=== PATIENT | female | born 1945 | race Caucasian/White ===

== ENCOUNTER 2019-11-13 10:10 | Emergency (ER) | payer MEDICARE ==
[2019-11-13 10:18] VITALS: BP 152/71; PULSE 61; RESP 16; TEMP 98.5
--- NOTE | 2019-11-13 10:39 | ED ---
General Adult HPI - General Chief complaint: Back Pain/Injury Stated complaint: Pain down leg Time Seen by Provider: 11/13/19 10:17 Source: patient, RN notes reviewed Mode of arrival: ambulatory Limitations: no limitations - History of Present Illness Initial comments: 74-year-old female with a past medical history of CAD, hyperlipidemia, atrial fibrillation presents to the emergency room for a chief complaint of right leg pain. Patient reports that she has a history of SI joint pain for which she has needed physical therapy in the past. Patient reports she was having some right and left SI joint pain over the past week. States she was applying heat and this was improving her symptoms. However over the past couple days she has started to have a burning gnawing pain on the lateral aspect of her right leg. States it shoots from her hip down to her foot. Her doctor is out of town so she could not see him. Patient denies any bladder or bowel changes, saddle anesthesia, weakness of the lower extremities, or difficulty ambulating. Denies fevers or chills. Patient has no other complaints at this time including shortness of breath, chest pain, abdominal pain, nausea or vomiting, headache, or visual changes. - Related Data Previous Rx's Medication Instructions Recorded methylPREDNISolone Dose Pack 4 mg PO DIRECTED #21 package 11/13/19 [Medrol Dose Pack] Allergies Allergy/AdvReac Type Severity Reaction Status Date / Time cephalexin [From Keflex] Allergy Unknown Verified 11/13/19 10:20 codeine Allergy Unknown Verified 11/13/19 10:20 danazol [From Danocrine] Allergy Unknown Verified 11/13/19 10:20 erythromycin base Allergy Unknown Verified 11/13/19 10:20 hydromorphone [From Dilaudid] Allergy Unknown Verified 11/13/19 10:20 meperidine [From Demerol] Allergy Unknown Verified 11/13/19 10:20 morphine Allergy Unknown Verified 11/13/19 10:20 nalbuphine [From Nubain] Allergy Unknown Verified 11/13/19 10:20 naproxen [From Naprosyn] Allergy Unknown Verified 11/13/19 10:20 pentazocine [From Talwin] Allergy Unknown Verified 11/13/19 10:20 tramadol Allergy Unknown Verified 11/13/19 10:20 tape Allergy Unknown Uncoded 11/13/19 10:20 Review of Systems ROS Statement: Those systems with pertinent positive or pertinent negative responses have been documented in the HPI. ROS Other: All systems not noted in ROS Statement are negative. Past Medical History Past Medical History: Atrial Fibrillation, Coronary Artery Disease (CAD), Hyperlipidemia History of Any Multi-Drug Resistant Organisms: None Reported Past Surgical History: Adenoidectomy, Appendectomy, Heart Catheterization With Stent, Tonsillectomy Past Psychological History: No Psychological Hx Reported Smoking Status: Never smoker Past Alcohol Use History: None Reported Past Drug Use History: None Reported General Exam Limitations: no limitations General appearance: alert, in no apparent distress Head exam: Present: atraumatic, normocephalic, normal inspection Eye exam: Present: normal appearance, PERRL, EOMI. Absent: scleral icterus, conjunctival injection, periorbital swelling ENT exam: Present: normal exam, mucous membranes moist Neck exam: Present: normal inspection, full ROM. Absent: tenderness, meningismus, lymphadenopathy Respiratory exam: Present: normal lung sounds bilaterally. Absent: respiratory distress, wheezes, rales, rhonchi, stridor Cardiovascular Exam: Present: regular rate, normal rhythm, normal heart sounds. Absent: systolic murmur, diastolic murmur, rubs, gallop, clicks GI/Abdominal exam: Present: soft, normal bowel sounds. Absent: distended, tenderness, guarding, rebound, rigid Extremities exam: Present: full ROM, normal capillary refill (Capillary refill less than 2 seconds in the right lower extremity, dp pulse strong with doppler), other (Positive straight leg raise). Absent: tenderness, pedal edema, joint swelling, calf tenderness (no calf Tenderness no erythema or edema.) Course Vital Signs 11/13/19 10:13 Temperature 98.5 F Pulse Rate 61 Respiratory 16 Rate Blood Pressure 152/71 O2 Sat by Pulse 98 Oximetry Medical Decision Making - Medical Decision Making [facility] physical exam as documented. Patient ambulated to x-ray without difficulty. Symptoms consistent with lumbar radiculopathy. Patient will be treated with Medrol Dosepak which she has tolerated in the past and is requesting. Patient does not want anything for pain whatsoever. Patient will follow up with her doctor at her appointment on . She will return here for any worsening symptoms. Disposition Clinical Impression: Radiculopathy Disposition: HOME SELF-CARE Condition: Good Instructions (If sedation given, give patient instructions): Lumbar Radiculopathy (ED) Additional Instructions: Please take Medrol Dosepak as directed. Follow-up with your doctor on . If you're having any worsening symptoms prior to that return to the emergency room. Prescriptions: methylPREDNISolone Dose Pack [Medrol Dose Pack] 4 mg PO DIRECTED #21 package Is patient prescribed a controlled substance at d/c from ED?: No Referrals: Iker Gracia MD [Primary Care Provider] - 1-2 days Time of Disposition: 11:04
--- NOTE | 2019-11-13 10:58 | XR ---
EXAMINATION TYPE: XR lumbar spine 2 or 3V DATE OF EXAM: 11/13/2019 CLINICAL HISTORY: Pain. Lower thoracic back pain. TECHNIQUE: Frontal and lateral images of the lumbar spine COMPARISON: None FINDINGS: There are 5 lumbar type vertebral bodies identified. The lumbar spine shows satisfactory alignment without evidence of acute fracture or dislocation. Vertebral body heights and disk space he ights are within normal limits. Facet arthropathy. Mild degenerative endplate spurring. No spondyloli sthesis. Decreased osseous mineralization. Calcified atherosclerotic disease of the abdominal aorta. IMPRESSION: 1. No acute fracture or dislocation is seen in the lumbar spine. 2. Facet arthropathy. 3. Decreased osseous mineralization.
== END 2019-11-13 11:15 | disposition home or self-care (01) ==
LOC: EC 10:10
DX: M54.10 Radiculopathy, site unspecified (principal); Z88.1 Allergy status to other antibiotic agents; Z88.5 Allergy status to narcotic agent; Z88.8 Allergy status to other drugs, medicaments and biological substances; Z88.6 Allergy status to analgesic agent; Z91.09 Other allergy status, other than to drugs and biological substances
CPT/HCPCS: 72100; 99283

== ENCOUNTER 2019-11-25 07:44 | Observation (INO) | payer MEDICARE ==
[2019-11-25] MEDS ORDERED: HYDROcodone/APAP 5-325MG 1 EACH TAB PO STA (08:17)
[2019-11-25] MEDS ORDERED: dexAMETHasone 4 MG TAB PO STA (08:18)
--- NOTE | 2019-11-25 08:37 | ED ---
General Adult HPI - General Chief complaint: Back Pain/Injury Stated complaint: Back pain Time Seen by Provider: 11/25/19 07:54 Source: EMS Mode of arrival: EMS Limitations: no limitations - History of Present Illness Initial comments: Dictation was produced using Seer dictation software. please excuse any grammatical, word or spelling errors. This patient was cared for during a federal and state declared state of emergency secondary to Covid 19 Chief Complaint: 74-year-old female recently diagnosed herniated disc presents with back pain. History of Present Illness: Patient 74-year-old female she presents today because she is having worsening back pain. Patient states that she recently saw a labeling specialist. She had an MRI done recently which showed L5-S1 herniated disc in the right lower back. She did see a labeling specialist who gave her prescriptions for gabapentin. She is also given referral to pain specialists an d physical therapy. Patient states that all day yesterday she's been having worsening pain. She did complete a prednisone Dosepak with no significant improvement of symptoms. She presents to the emergency department because she wants a pain specialist evaluation. She denies any fevers. No urinary symptoms. The ROS documented in this emergency department record has been reviewed and confirmed by me. Those systems with pertinent positive or negative responses have been documented in the HPI. All other systems are other negative and/or noncontributory. PHYSICAL EXAM: General Impression: Alert and oriented x3, not in acute distress HEENT: Normocephalic atraumatic, extra-ocular movements intact, pupils equal and reactive to light bilaterally, mucous membranes moist. Cardiovascular: Heart regular rate and rhythm Chest: Able to complete full sentences, no retractions, no tachypnea Abdomen: abdomen soft, non-tender, non-distended, no organomegaly Musculoskeletal: Pulses present and equal in all extremities, no peripheral edema Motor: no focal deficits noted Neurological: CN II-XII grossly intact, no focal motor or sensory deficits noted Skin: Intact with no visualized rashes Psych: Normal affect and mood ED course: 74-year-old female presents with back pain. She had an MRI done within the last week or so showing L5-S1 herniated disc. Patient provides a list of medications that she feels she is either ALLERGIC or significantly sensitive to. On that list includes morphine, codeine and Dilaudid. Patient reports that she feels very nauseated especially with codeine. At this point considering our discussion believe that patient is not truly ALLERGIC to these medications however is probably more sensitive than others. She began taking gabapentin yesterday. Considering that she just started yesterday gabapentin and will likely not take any effect. Discussion was held patient per she is agreeable for trying [place] here in emergency department for some relief. P atient given 10 mg of Decadron. She completed a prednisone pack one week ago. Urinalysis is unremarkable. Urinalysis is unremarkable. Case is discussed with pain specialist Dr. Kothari who is agreeable to consult on patient. He reports that he will unlikely be able to perform any procedures until next week. Discussed patient case with [facility] physician Dr. Tirado was willing to accept patients care. Patient given some Toradol. Patient will be admitted observation. - Related Data Home Medications Medication Instructions Recorded Confirmed Apixaban [Eliquis] 5 mg PO BID 11/25/19 11/25/19 Aspirin EC [Ecotrin Low Dose] 81 mg PO DAILY 11/25/19 11/25/19 Atorvastatin [Lipitor] 10 mg PO W/SUPPER 11/25/19 11/25/19 Breast Health 1 tab PO DAILY 11/25/19 11/25/19 Calcium Carbonate [Tums] 500 mg PO DAILY 11/25/19 11/25/19 Cartilage/Collagen/Bor/Hyalur 1 tab PO DAILY 11/25/19 11/25/19 [Move Free Ultra Tablet] Circulation Support 1 tab PO DAILY 11/25/19 11/25/19 Gabapentin 300 mg PO HS 11/25/19 11/25/19 Lansoprazole [Prevacid] 15 mg PO DAILY 11/25/19 11/25/19 Multivitamins, Thera [Multivitamin 1 tab PO DAILY 11/25/19 11/25/19 (formulary)] [place]-3 Fatty Acids [[place]-3] 3,000 mg PO DAILY 11/25/19 11/25/19 Psyllium Husk [Metamucil] 0.4 gm PO DAILY 11/25/19 11/25/19 Ubidecarenone [Co Q-10] 200 mg PO DAILY 11/25/19 11/25/19 Allergies Allergy/AdvReac Type Severity Reaction Status Date / Time cephalexin [From Keflex] Allergy Unknown Verified 11/25/19 08:47 codeine Allergy Unknown Verified 11/25/19 08:47 danazol [From Danocrine] Allergy Unknown Verified 11/25/19 08:47 erythromycin base Allergy Unknown Verified 11/25/19 08:47 hydromorphone [From Dilaudid] Allergy Unknown Verified 11/25/19 08:47 meperidine [From Demerol] Allergy Unknown Verified 11/25/19 08:47 morphine Allergy Unknown Verified 11/25/19 08:47 nalbuphine [From Nubain] Allergy Unknown Verified 11/25/19 08:47 naproxen [From Naprosyn] Allergy Unknown Verified 11/25/19 08:47 pentazocine [From Talwin] Allergy Unknown Verified 11/25/19 08:47 tramadol Allergy Unknown Verified 11/25/19 08:47 tape Allergy Unknown Uncoded 11/13/19 10:20 Review of Systems ROS Statement: Those systems with pertinent positive or pertinent negative responses have been documented in the HPI. ROS Other: All systems not noted in ROS Statement are negative. Past Medical History Past Medical History: Atrial Fibrillation, Coronary Artery Disease (CAD), Hyperlipidemia History of Any Multi-Drug Resistant Organisms: None Reported Past Surgical History: Adenoidectomy, Appendectomy, Heart Catheterization With Stent, Tonsillectomy Past Psychological History: No Psychological Hx Reported Smoking Status: Never smoker Past Alcohol Use History: None Reported Past Drug Use History: None Reported General Exam Limitations: no limitations Course Vital Signs 11/25/19 11/25/19 11/25/19 07:48 09:15 09:47 Temperature 98.2 F Pulse Rate 61 58 L Respiratory 16 18 16 Rate Blood Pressure 158/72 113/57 O2 Sat by Pulse 97 97 Oximetry Medical Decision Making - Lab Data Lab Results 11/25/19 Range/Units 08:22 Urine Color Light Yellow Urine Appearance Clear (Clear) Urine pH 7.0 (5.0-8.0) Ur Specific [place] 1.009 (1.001-1.035) Urine Protein Negative (Negative) Urine Glucose (UA) Negative (Negative) Urine Ketones Negative (Negative) Urine Blood Negative (Negative) Urine Nitrite Negative (Negative) Urine Bilirubin Negative (Negative) Urine Urobilinogen <2.0 (<2.0) mg/dL Ur Leukocyte Esterase Negative (Negative) Disposition Clinical Impression: Back pain Disposition: ADMITTED IP TO THIS HOSP Condition: Fair Referrals: Rico Pena MD [STAFF PHYSICIAN] - 1-2 days Decision Time: 09:50
[2019-11-25] MEDS ORDERED: APIXABAN 5 MG TAB PO STA (08:45)
[2019-11-25 08:48] LABS: Appearance,Urine Clear (Clear); Bilirubin,Urine Negative (Negative); Blood,Urine Negative (Negative); Color,Urine Light Yellow; Glucose,Urine (UA) Negative (Negative); Ketones,Urine Negative (Negative); Leukocyte Esterase,Urine Negative (Negative); Nitrite,Urine Negative (Negative); Protein,Urine Negative (Negative); Specific Gravity,Urine 1.009 (1.001-1.035); Urobilinogen,Urine <2.0 mg/dL (<2.0)
[2019-11-25] MEDS ORDERED: APIXABAN 5 MG TAB PO SCH (09:00)
[2019-11-25] MEDS ORDERED: ONDANSETRON 4 MG ODT STARTER PACK 2 TAB BTL PO STA (09:09)
[2019-11-25] MEDS ORDERED: NALOXONE 0.4 MG/ML 1 ML VIAL IVP STA (09:24)
[2019-11-25] MEDS ORDERED: KETOROLAC 15 MG/ML 1 ML VIAL IVP STA (09:50)
[2019-11-25] MEDS ORDERED: ONDANSETRON 4 MG/2 ML VIAL IVP STA (10:16)
[2019-11-25] MEDS ORDERED: NALOXONE 0.4 MG/ML 1 ML VIAL IV PRN (11:55)
[2019-11-25] MEDS ORDERED: METOCLOPRAMIDE 5 MG/ML 2 ML VIAL IVP STA (13:35)
--- NOTE | 2019-11-25 13:41 | P.HPIM ---
History of Present Illness H&P Date: 11/25/19 Chief Complaint: Back pain This is a 74-year-old female with past medical history noted below significant for recently diagnosed herniated disc at L4/L5 that usually follow-up with marketing proposal specialist in [place]. Patient presented to the emergency room with worsening back pain. Patient was not very cooperative with my interview. She said that the pain is mostly in her lower back and radiated down to her right leg on the frontal aspect down to the knee. She denies any numbness or tingling. No weakness anywhere. She is having difficulty walking around because of pain. She said that she had an MRI of her lower spine several days ago in [place] showing herniated disc at L4/L5. She was advised by her orthopedic surgeon to take pain medication but patient refuses to take any medications and reported multiple nonspecific ALLERGIES to different pain medications. She was evaluated in the ER and was given 2 [place] and after she was nauseated and vomiting severely and subsequently was given Narcan. She is currently laying comfortably in bed. She denies any back pain at this time. She reports feeling nauseous. She denies any fevers or chills. She is having regular bowel movements otherwise. Her at bedside told me that she is crying in bed every night and unable to get any sleep as she does not take any pain medications. Patient said that she had a Medrol Dosepak last week with minimal relief. She was started on Neurontin 300 mg at bedtime. Review of Systems Review of system: 14 points review of systems were obtained and were negative except to what were mentioned in the HPI. Past Medical History Past Medical History: Atrial Fibrillation, Coronary Artery Disease (CAD), GERD/Reflux, Hyperlipidemia Additional Past Medical History / Comment(s): Chronic back pain for years d/t injury, constipation. History of Any Multi-Drug Resistant Organisms: None Reported Past Surgical History: Adenoidectomy, Appendectomy, Heart Catheterization With Stent, Orthopedic Surgery, Tonsillectomy Additional Past Surgical History / Comment(s): Pilonidal cystectomy, bilateral partial oophorectomies, surgery for R ruptured ectopic , R breast benign biopsy, bilateral carpal tunnel releases, D&C x2, removal benign mass R cheek, bilateral cataract removals Past Anesthesia/Blood Transfusion Reactions: No Reported Reaction Additional Past Anesthesia/Blood Transfusion Reaction / Comment(s): PT has clausterphobia Date of Last Stent Placement:: 2012-[facility] in [place]. Past Psychological History: No Psychological Hx Reported Additional Psychological History / Comment(s): Pt resides with her spouse. She recently has been using a borrowed walker. She normally can drive but not lately d/t back pain. Smoking Status: Never smoker Past Alcohol Use History: Rare Past Drug Use History: None Reported - Past Family History Father Family Medical History: Cancer Additional Family Medical History / Comment(s): Father had lung cancer, he was a smoker. Mother Family Medical History: CVA/TIA Medications and Allergies Home Medications Medication Instructions Recorded Confirmed Type Apixaban [Eliquis] 5 mg PO BID 11/25/19 11/25/19 History Aspirin EC [Ecotrin Low Dose] 81 mg PO DAILY 11/25/19 11/25/19 History Atorvastatin [Lipitor] 10 mg PO W/SUPPER 11/25/19 11/25/19 History Breast Health 1 tab PO DAILY 11/25/19 11/25/19 History Calcium Carbonate [Tums] 500 mg PO DAILY 11/25/19 11/25/19 History Cartilage/Collagen/Bor/Hyalur 1 tab PO DAILY 11/25/19 11/25/19 History [Move Free Ultra Tablet] Circulation Support 1 tab PO DAILY 11/25/19 11/25/19 History Gabapentin 300 mg PO HS 11/25/19 11/25/19 History Lansoprazole [Prevacid] 15 mg PO DAILY 11/25/19 11/25/19 History Multivitamins, Thera [Multivitamin 1 tab PO DAILY 11/25/19 11/25/19 History (formulary)] [place]-3 Fatty Acids [[place]-3] 3,000 mg PO DAILY 11/25/19 11/25/19 History Psyllium Husk [Metamucil] 0.4 gm PO DAILY 11/25/19 11/25/19 History Ubidecarenone [Co Q-10] 200 mg PO DAILY 11/25/19 11/25/19 History Allergies Allergy/AdvReac Type Severity Reaction Status Date / Time cephalexin [From Keflex] Allergy Unknown Verified 11/25/19 08:47 codeine Allergy Unknown Verified 11/25/19 08:47 danazol [From Danocrine] Allergy Unknown Verified 11/25/19 08:47 erythromycin base Allergy Unknown Verified 11/25/19 08:47 hydromorphone [From Dilaudid] Allergy Unknown Verified 11/25/19 08:47 meperidine [From Demerol] Allergy Unknown Verified 11/25/19 08:47 morphine Allergy Unknown Verified 11/25/19 08:47 nalbuphine [From Nubain] Allergy Unknown Verified 11/25/19 08:47 naproxen [From Naprosyn] Allergy Unknown Verified 11/25/19 08:47 pentazocine [From Talwin] Allergy Unknown Verified 11/25/19 08:47 tramadol Allergy Unknown Verified 11/25/19 08:47 tape Allergy Unknown Uncoded 11/13/19 10:20 Physical Exam Vitals: Vital Signs Temp Pulse Resp BP Pulse Ox 11/25/19 12:00 60 16 118/59 11/25/19 11:30 65 16 117/63 97 11/25/19 11:09 62 16 117/63 97 11/25/19 11:00 65 16 120/62 11/25/19 10:30 64 16 136/63 100 11/25/19 10:18 136/63 100 11/25/19 10:00 60 16 135/59 100 11/25/19 09:50 64 16 128/56 100 11/25/19 09:47 16 11/25/19 09:15 58 L 18 113/57 97 11/25/19 07:48 98.2 F 61 16 158/72 97 Intake and Output 11/24/19 11/25/19 11/25/19 22:59 06:59 14:59 Other: Weight 83.915 kg General: The patient is awake and alert, in no distress Eye: there is normal conjunctiva bilaterally. Neck: The neck is supple, there is no JVD. Cardiovascular: Normal S1-S2, no S3-S4, no murmurs. Respiratory: Lungs clear to auscultation bilaterally Gastrointestinal: Abdomen is soft, nontender Musculoskeletal: There is no pedal edema. Neurological:. Speech is normal. Skin: Skin is warm and dry Thrombosis Risk Factor Assmnt - Choose All That Apply Any of the Below Risk Factors Present?: Yes Each Factor Represents 1 point: Obesity (BMI >25) Other Risk Factors: Yes Each Risk Factor Represents 2 Points: Age 61-74 years Other congenital or acquired thrombophilia - If yes, enter type in comment: No Thrombosis Risk Factor Assessment Total Risk Factor Score: 3 Thrombosis Risk Factor Assessment Level: Moderate Risk Assessment and Plan Assessment: 1. Worsening low back pain, secondary to L4/L5 disc herniation. Patient received Medrol Dosepak last week with minimal relief. She is currently on Neurontin 300 mg at bedtime. I would increase her Neurontin dose to 300 mg 3 times a day. She is intolerant to any opiate medication and a reported ALLERGY with [place] and tramadol. Pain management consulted for further evaluation 2. Nausea, attributed to patient taking [place] in the ER. She received 2 doses of Zofran with minimal relief. I would order one-time dose of Reglan and continue to monitor closely. 3. Chronic atrial fibrillation on anticoagulation with Eliquis 4. Chronic medical problems: Hyperlipidemia, GERD, continue home medications The patient is placed in observation with an anticipated less than 2 midnight stay for evaluation of the medical problems noted above. CODE STATUS: Full code Anticipated discharge date: To be determined based on clinical course Anticipated discharge place: Home A total of 45 minutes was spent on the care of this complex patient more than 50% of the time was spent in counseling and care coordination.
[2019-11-25 14:33] LABS: Basophils % (A) 0 %; Eosinophils # (A) 0.1 k/uL (0-0.7); Eosinophils % (A) 1 %; HCT 47.6 % (34.0-46.0); HGB 15.2 gm/dL (11.4-16.0); Lymphocytes # (A) 0.5 k/uL (1.0-4.8); Lymphocytes % (A) 5 %; MCH 31.2 pg (25.0-35.0); MCV 97.3 fL (80.0-100.0); Mean Platelet Volume 8.5; Monocytes # (A) 0.1 k/uL (0-1.0); Monocytes % (A) 1 %; Neutrophils # (A) 8.6 k/uL (1.3-7.7); Neutrophils % (A) 92 %; Platelet Count 238 k/uL (150-450); RBC 4.89 m/uL (3.80-5.40); RDW 12.1 % (11.5-15.5); WBC 9.3 k/uL (3.8-10.6)
[2019-11-25 14:36] LABS: Calcium 9.6 mg/dL (8.4-10.2); Potassium 4.4 mmol/L (3.5-5.1)
[2019-11-25] MEDS ORDERED: ATORVASTATIN 10 MG TAB PO SCH (17:30)
[2019-11-25] MEDS: GABAPENTIN 300 MG CAP PO SCH ×2 (17:59→20:14)
[2019-11-25] MEDS: APIXABAN 5 MG TAB PO SCH (20:14)
[2019-11-26 04:13] VITALS: PULSE 63
[2019-11-26] MEDS ORDERED: PANTOPRAZOLE 40 MG TABLET PO SCH (07:30)
[2019-11-26] MEDS: APIXABAN 5 MG TAB PO SCH (08:28)
[2019-11-26] MEDS: GABAPENTIN 300 MG CAP PO SCH (08:28)
[2019-11-26] MEDS ORDERED: ASPIRIN 81 MG PO SCH (09:00)
[2019-11-26] MEDS ORDERED: LIDOCAINE 5% PATCH TOPICAL SCH (09:00)
--- NOTE | 2019-11-26 09:56 | P.DS ---
Providers Date of admission: 11/25/19 11:55 Expected date of discharge: 11/26/19 Attending physician: Ni Pérez Consults: 11/25/19 09:08 Consult Physician Routine Consulting Provider: Alejandro Kothari Consult Reason/Comments: pain consult Do you want consulting provider notified?: Already Contacted Primary care physician: Iker Gracia MD Hospital Course: This is a 74-year-old female with past medical history noted below significant for recently diagnosed herniated disc at L4/L5 that usually follow-up with contracts specialist in [place]. Patient presented to the emergency room with worsening back pain. She said that she had an MRI of her lower spine several days ago in [place] showing herniated disc at L4/L5. She was advised by her orthopedic surgeon to take pain medication but patient refuses to take any medications and reported multiple nonspecific ALLERGIES to different pain medications. She was placed on observation for further management of her m edical problems noted below 1. Worsening low back pain, secondary to L4/L5 disc herniation. Patient received Medrol Dosepak last week with minimal relief. She is on Neurontin 300 mg at bedtime. I increased her Neurontin to 300 mg 3 times a day with good response. She also had a lot of relief with a lidocaine patch. Her was able to contact her orthopedic surgeon and she is currently scheduled for back surgery in the next week or 2. She will follow her scale expert advice on when to discontinue aspirin and Eliquis prior to surgery. 2. Nausea, attributed to patient taking [place] in the ER. Resolved 3. Chronic atrial fibrillation on anticoagulation with Eliquis 4. Chronic medical problems: Hyperlipidemia, GERD, continue home medications Patient will be discharged home in a stable condition. For further details about this hospitalization please refer to the electronic chart. Patient Condition at Discharge: Stable Plan - Discharge Summary Discharge Rx Participant: No New Discharge Prescriptions: New Lidocaine 5% Patch [Lidoderm 5% Patch] 1 patch TOPICAL DAILY #20 patch Gabapentin [Neurontin] 300 mg PO TID #60 cap Continue Multivitamins, Thera [Multivitamin (formulary)] 1 tab PO DAILY Breast Health 1 tab PO DAILY Ubidecarenone [Co Q-10] 200 mg PO DAILY Cartilage/Collagen/Bor/Hyalur [Move Free Ultra Tripl Actn Tab] 1 tab PO DAILY Calcium Carbonate [Tums] 500 mg PO DAILY Psyllium Husk [Metamucil] 0.4 gm PO DAILY [place]-3 Fatty Acids [[place]-3] 3,000 mg PO DAILY Lansoprazole [Prevacid] 15 mg PO DAILY Aspirin EC [Ecotrin Low Dose] 81 mg PO DAILY Atorvastatin [Lipitor] 10 mg PO W/SUPPER Apixaban [Eliquis] 5 mg PO BID Circulation Support 1 tab PO DAILY Discontinued Gabapentin 300 mg PO HS Discharge Medication List Apixaban [Eliquis] 5 mg PO BID 11/25/19 [History] Aspirin EC [Ecotrin Low Dose] 81 mg PO DAILY 11/25/19 [History] Atorvastatin [Lipitor] 10 mg PO W/SUPPER 11/25/19 [History] Breast Health 1 tab PO DAILY 11/25/19 [History] Calcium Carbonate [Tums] 500 mg PO DAILY 11/25/19 [History] Cartilage/Collagen/Bor/Hyalur [Move Free Ultra Tripl Actn Tab] 1 tab PO DAILY 11/25/19 [History] Circulation Support 1 tab PO DAILY 11/25/19 [History] Lansoprazole [Prevacid] 15 mg PO DAILY 11/25/19 [History] Multivitamins, Thera [Multivitamin (formulary)] 1 tab PO DAILY 11/25/19 [History] [place]-3 Fatty Acids [[place]-3] 3,000 mg PO DAILY 11/25/19 [History] Psyllium Husk [Metamucil] 0.4 gm PO DAILY 11/25/19 [History] Ubidecarenone [Co Q-10] 200 mg PO DAILY 11/25/19 [History] Gabapentin [Neurontin] 300 mg PO TID #60 cap 11/26/19 [Rx] Lidocaine 5% Patch [Lidoderm 5% Patch] 1 patch TOPICAL DAILY #20 patch 11/26/19 [Rx] Discharge Disposition: HOME SELF-CARE
[2019-11-26 10:33] VITALS: BP 131/93; RESP 17; TEMP 98.7
--- NOTE | 2019-11-26 14:26 | P.PAINCN ---
History of Present Illness - Reason for Consult Consult date: 11/25/19 - History of Present Illness This is a 74-year-old patient referred by ER for acute on chronic low back pain and leg pain. Patient says that she was recently diagnosed with a herniated disc L4-L5 in [place] by an medical transport specialist and was referred to the ER for pain management. Patient says that she has pain in her low back reading down her right leg on the anterior aspect of the knee. Denies any numbness or tingling or weakness. She is having difficulty walking around and even getting out of bed due to her pain. The pain better is lying in bed. In the ER she reported multiple medication ALLERGIES and was given opioid medication caused significant nausea and vomiting. She is also given a Medrol Dosepak last week and minimal relief and started on Neurontin 300 mg at bedtime. Patient does take Eliquis for atrial fibrillation. Patient also denies new-onset weakness, bowel/bladder incontinence, or any other signs or symptoms of cauda equina syndrome. There are no signs of acute intoxication, and no indications of medication diversion or overuse. In addition to above, 13-point review of systems is also negative for chest pain, shortness of breath, changes in vision, changes in hearing, new onset weakness, abdominal pain, diarrhea, extreme fatigue, malaise, fever, skin changes, homicidal or suicidal ideation, or bowel or bladder incontinence. Physical exam: Patient was difficult to examine given the extreme pain that she was in. She was laying in bed hardly able to move. When I asked her to she was able to move both of her lower extremities with some hip flexion and ankle plantar flexion and dorsiflexion. I was unable to assess any other part of her exam given the fact that she would not get out of bed due to her extreme pain. Imaging: For the current MRI in [place] that showed L4-L5 disc herniation. However we do not have access to those records. Assessment: 1. Acute lumbar radicular pain Plan: 1. Explanation: Diagnoses, prognoses, and multiple treatment options including but not limited to physical therapy, interventional therapies, medication management and surgery were discussed with the patient and all questions were answered to the patient's satisfaction. 2. Investigations: Obtain MRI records on possible 3. Counseling: Long discussion with the patient and her regarding the possibility of doing epidural steroid injection. Patient is on Eliquis and would not be a candidate for any injection for at least 72 hours. At this point the and the patient wanted to proceed with surgery rather than any epidural steroid injection. 4. Procedures: Consider L4-L5 epidural steroid injection in the future. However I would like to look at her MRI report first. She is also developed associated the office for 72 hours. 5. Consultations: None 6. Medications: Agreed gabapentin 300 mg 3 times a day patient was recently started on 300 mg once a day. She was an inpatient so I agreed with escalation of her dose 7. Disposition: As needed Past Medical History Past Medical History: Atrial Fibrillation, Coronary Artery Disease (CAD), GERD/Reflux, Hyperlipidemia Additional Past Medical History / Comment(s): Chronic back pain for years d/t injury, constipation. History of Any Multi-Drug Resistant Organisms: None Reported Past Surgical History: Adenoidectomy, Appendectomy, Heart Catheterization With Stent, Orthopedic Surgery, Tonsillectomy Additional Past Surgical History / Comment(s): Pilonidal cystectomy, bilateral partial oophorectomies, surgery for R ruptured ectopic , R breast benign biopsy, bilateral carpal tunnel releases, D&C x2, removal benign mass R cheek, bilateral cataract removals Past Anesthesia/Blood Transfusion Reactions: No Reported Reaction Additional Past Anesthesia/Blood Transfusion Reaction / Comm: PT has clausterphobia Date of Last Stent Placement:: 2012-[facility] in [place]. Past Psychological History: No Psychological Hx Reported Additional Psychological History / Comment(s): Pt resides with her spouse. She recently has been using a borrowed walker. She normally can drive but not lately d/t back pain. Smoking Status: Never smoker Past Alcohol Use History: Rare Past Drug Use History: None Reported - Past Family History Father Family Medical History: Cancer Additional Family Medical History / Comment(s): Father had lung cancer, he was a smoker. Mother Family Medical History: CVA/TIA Medications and Allergies Home Medications Medication Instructions Recorded Confirmed Type Apixaban [Eliquis] 5 mg PO BID 11/25/19 11/25/19 History Aspirin EC [Ecotrin Low Dose] 81 mg PO DAILY 11/25/19 11/25/19 History Atorvastatin [Lipitor] 10 mg PO W/SUPPER 11/25/19 11/25/19 History Breast Health 1 tab PO DAILY 11/25/19 11/25/19 History Calcium Carbonate [Tums] 500 mg PO DAILY 11/25/19 11/25/19 History Cartilage/Collagen/Bor/Hyalur 1 tab PO DAILY 11/25/19 11/25/19 History [Move Free Ultra Tripl Actn Tab] Circulation Support 1 tab PO DAILY 11/25/19 11/25/19 History Lansoprazole [Prevacid] 15 mg PO DAILY 11/25/19 11/25/19 History Multivitamins, Thera [Multivitamin 1 tab PO DAILY 11/25/19 11/25/19 History (formulary)] Garber-3 Fatty Acids [Garber-3] 3,000 mg PO DAILY 11/25/19 11/25/19 History Psyllium Husk [Metamucil] 0.4 gm PO DAILY 11/25/19 11/25/19 History Ubidecarenone [Co Q-10] 200 mg PO DAILY 11/25/19 11/25/19 History Gabapentin [Neurontin] 300 mg PO TID #60 cap 11/26/19 Rx Lidocaine 5% Patch [Lidoderm 5% 1 patch TOPICAL DAILY #20 patch 11/26/19 Rx Patch] Allergies Allergy/AdvReac Type Severity Reaction Status Date / Time cephalexin [From Keflex] Allergy Unknown Verified 11/25/19 08:47 codeine Allergy Unknown Verified 11/25/19 08:47 danazol [From Danocrine] Allergy Unknown Verified 11/25/19 08:47 erythromycin base Allergy Unknown Verified 11/25/19 08:47 hydromorphone [From Dilaudid] Allergy Unknown Verified 11/25/19 08:47 meperidine [From Demerol] Allergy Unknown Verified 11/25/19 08:47 morphine Allergy Unknown Verified 11/25/19 08:47 nalbuphine [From Nubain] Allergy Unknown Verified 11/25/19 08:47 naproxen [From Naprosyn] Allergy Unknown Verified 11/25/19 08:47 pentazocine [From Talwin] Allergy Unknown Verified 11/25/19 08:47 tramadol Allergy Unknown Verified 11/25/19 08:47 tape Allergy Unknown Uncoded 11/13/19 10:20 Physical Exam Vitals: Vital Signs Temp Pulse Resp BP Pulse Ox 11/26/19 09:00 98.7 F 63 17 131/93 95 11/26/19 03:00 98.3 F 63 18 122/69 95 11/25/19 21:00 98.2 F 73 18 107/63 95 11/25/19 15:00 98.6 F 83 18 133/74 97 Intake and Output 11/25/19 11/26/19 11/26/19 22:59 06:59 14:59 Intake Total 600 200 125 Balance 600 200 125 Intake: Oral 600 200 125 Other: Voiding Method Toilet Toilet # Voids 1 1 Results CBC & Chem 7: 11/25/19 14:01 11/25/19 14:01 Labs: Abnormal Lab Results - Last 24 Hours (Table) 11/25/19 11/25/19 Range/Units 14:01 14:01 Hct 47.6 H (34.0-46.0) % Neutrophils # 8.6 H (1.3-7.7) k/uL Lymphocytes # 0.5 L (1.0-4.8) k/uL BUN 23 H (7-17) mg/dL Glucose 139 H (74-99) mg/dL PQRS Measure Charge Sheet PQRS Narrative: Do You Want the Pneumonia Vaccine Up to Date Vaccine AT THIS TIME? Blood Pressure [Left Arm] 131/93 Blood Pressure 118/59 Pain Intensity [Back] 4 Pain Intensity 4 Pain Scale Used Numeric (1 - 10) Scale Used Numeric (1 - 10) Home Medications: Ambulatory Orders Apixaban [Eliquis] 5 mg PO BID 11/25/19 Aspirin EC [Ecotrin Low Dose] 81 mg PO DAILY 11/25/19 Atorvastatin [Lipitor] 10 mg PO W/SUPPER 11/25/19 Breast Health 1 tab PO DAILY 11/25/19 Calcium Carbonate [Tums] 500 mg PO DAILY 11/25/19 Cartilage/Collagen/Bor/Hyalur [Move Free Ultra Tripl Actn Tab] 1 tab PO DAILY 11/25/19 Circulation Support 1 tab PO DAILY 11/25/19 Lansoprazole [Prevacid] 15 mg PO DAILY 11/25/19 Multivitamins, Thera [Multivitamin (formulary)] 1 tab PO DAILY 11/25/19 Garber-3 Fatty Acids [Garber-3] 3,000 mg PO DAILY 11/25/19 Psyllium Husk [Metamucil] 0.4 gm PO DAILY 11/25/19 Ubidecarenone [Co Q-10] 200 mg PO DAILY 11/25/19 Gabapentin [Neurontin] 300 mg PO TID #60 cap 11/26/19 Lidocaine 5% Patch [Lidoderm 5% Patch] 1 patch TOPICAL DAILY #20 patch 11/26/19
== END 2019-11-26 12:02 | disposition home or self-care (01) ==
LOC: EC 07:44 → 1SOBS 11:55
PROVIDERS: ADMIT Internal Medicine; ATTEND Internal Medicine
DX: G89.29 Other chronic pain (principal); M54.9 Dorsalgia, unspecified; M51.27 Other intervertebral disc displacement, lumbosacral region; M51.26 Other intervertebral disc displacement, lumbar region; R26.2 Difficulty in walking, not elsewhere classified; K59.00 Constipation, unspecified; I48.20 Chronic atrial fibrillation, unspecified; K21.9 Gastro-esophageal reflux disease without esophagitis; I25.10 Atherosclerotic heart disease of native coronary artery without angina pectoris; E78.5 Hyperlipidemia, unspecified; Z80.1 Family history of malignant neoplasm of trachea, bronchus and lung; Z82.3 Family history of stroke; Z95.5 Presence of coronary angioplasty implant and graft; Z98.890 Other specified postprocedural states; Z98.42 Cataract extraction status, left eye; Z98.41 Cataract extraction status, right eye; Z90.722 Acquired absence of ovaries, bilateral; Z79.01 Long term (current) use of anticoagulants; Z79.82 Long term (current) use of aspirin; Z79.899 Other long term (current) drug therapy; Z88.6 Allergy status to analgesic agent; Z88.1 Allergy status to other antibiotic agents; Z88.8 Allergy status to other drugs, medicaments and biological substances; Z91.09 Other allergy status, other than to drugs and biological substances; Z88.5 Allergy status to narcotic agent
CPT/HCPCS: 96375 ×2; 96374; 99285; 80048; 85025; 81003; G0378 ×2; J8540; J2310; J2765; J2405; S0119